=== PATIENT | female | born 1980 | race Two or more races ===

== ENCOUNTER 2018-12-05 06:03 | Day surgery (SDC) | payer OTHER ==
[~2018-12-05] VITALS: Ht 157.5 cm; Wt 101.6 kg
[2018-12-05 06:17] VITALS: BP 123/75
[2018-12-05 11:33] VITALS: BP 122/77
== END 2018-12-05 10:40 | disposition home or self-care (01) ==
LOC: DS 06:03 → OR 07:30 → DS 10:40
PROVIDERS: Obstetrics & Gynecology
PROC: 0UDB8ZZ Extraction of Endometrium, Via Natural or Artificial Opening Endoscopic (ICD-10-PCS; 2018-12-05)
PROC: 0UB98ZZ Excision of Uterus, Via Natural or Artificial Opening Endoscopic (ICD-10-PCS; principal; 2018-12-05 07:30)
DX: N92.1 Excessive and frequent menstruation with irregular cycle (principal); N84.0 Polyp of corpus uteri; E03.9 Hypothyroidism, unspecified; D64.9 Anemia, unspecified
CPT/HCPCS: J0690; J1170; J2250; J2405; J2704; J7030; J7120

== ENCOUNTER 2020-04-08 13:59 | Emergency (ER) | payer BC ==
[~2020-04-08] VITALS: Ht 160 cm; Wt 102.5 kg
[2020-04-08 14:08] VITALS: Ht 160 cm; Wt 102.5 kg
[2020-04-08 14:57] LABS: BASOPHIL % 0.4 % (0-2); PLATELET COUNT 273 x10^3mcL (130-400)
[2020-04-08 14:59] LABS: RED CELL DISTRIBUTION WIDTH 14.6 % (11.5-14.5)
[2020-04-08 17:32] VITALS: BP 122/74
== END 2020-04-08 17:32 | disposition home or self-care (01) ==
LOC: ED 13:59
DX: O03.9 Complete or unspecified spontaneous abortion without complication (principal); E03.9 Hypothyroidism, unspecified

== ENCOUNTER 2020-04-11 20:02 | Emergency (ER) | payer BC ==
[~2020-04-11] VITALS: Ht 160 cm; Wt 100.7 kg
[2020-04-11 20:13] VITALS: Ht 160 cm; Wt 100.7 kg
[2020-04-11 22:38] LABS: BASOPHIL % 0.2 % (0-2); PLATELET COUNT 234 x10^3mcL (130-400); RED CELL DISTRIBUTION WIDTH 14.5 % (11.5-14.5)
[2020-04-11 22:47] LABS: UA SPECIFIC GRAVITY >=1.030 (1.005-1.035); microscopic required? YES; urine erythrocyte 3+ (NEGATIVE)
[2020-04-11 23:31] VITALS: BP 132/86
== END 2020-04-11 23:31 | disposition home or self-care (01) ==
LOC: ED 20:02
PROVIDERS: Emergency Medicine
DX: O03.9 Complete or unspecified spontaneous abortion without complication (principal); O23.41 Unspecified infection of urinary tract in pregnancy, first trimester; E03.9 Hypothyroidism, unspecified; E66.9 Obesity, unspecified; Z68.39 Body mass index [BMI] 39.0-39.9, adult
CPT/HCPCS: J3010; J7030; Q0092

== ENCOUNTER 2020-11-05 13:46 | Emergency (ER) | payer BC ==
[~2020-11-05] VITALS: Ht 160 cm; Wt 107.0 kg
[2020-11-05 13:54] VITALS: Ht 160 cm; Wt 107.0 kg
[2020-11-05 14:48] LABS: BASOPHIL % 0.3 % (0.2-1.3); PLATELET COUNT 215 x10^3mcL (179-408)
[2020-11-05 14:51] LABS: microscopic required? YES; urine erythrocyte 3+ (NEGATIVE)
[2020-11-05 14:52] LABS: RED CELL DISTRIBUTION WIDTH 15.2 % (12.3-17.7)
[2020-11-05 16:12] VITALS: BP 121/56
== END 2020-11-05 16:12 | disposition home or self-care (01) ==
LOC: ED 13:46
PROVIDERS: Specialist
DX: O20.0 Threatened abortion (principal); O99.281 Endocrine, nutritional and metabolic diseases complicating pregnancy, first trimester; Z3A.01 Less than 8 weeks gestation of pregnancy